=== PATIENT | male | born 1970 | race Caucasian/White ===

== ENCOUNTER 2022-12-28 13:21 | Observation (INO) | payer OTHER, BC ==
[2022-12-28] MEDS ORDERED: Morphine 4 MG/ML VIAL IVPUSH ONE (13:35)
[2022-12-28] MEDS ORDERED: Sodium Chloride 0.9% 1,000 ML IV ONE (14:34)
[2022-12-28] MEDS ORDERED: fentaNYL 100 MCG/2 ML SDV IVPUSH STA (14:38)
[2022-12-28] MEDS ORDERED: Sodium Chloride 0.9% 10 ML Syringe FLUSH PRN (16:33)
[2022-12-28 16:52] LABS: HEMATOCRIT 37.5 % (40.0-54.0); HEMOGLOBIN 13.1 g/dL (13.0-18.0); MEAN CORPUSCULAR HEMOGLOBIN 28.9 pg (27.0-32.0); MEAN CORPUSCULAR HGB CONC 34.9 g/dL (31.0-35.0); MEAN PLATELET VOLUME 9.2 fL (6.0-10.0); RED BLOOD CELL COUNT 4.53 M/uL (4.50-6.50); RED CELL DISTRIBUTION WIDTH 13.4 % (11.0-16.0)
[2022-12-28 17:02] LABS: ANION GAP 11.6 mmol/L (5.0-15.0); BUN/CREATININE RATIO 15.2 (6-25); CALCIUM 8.1 mg/dL (8.5-10.1); CARBON DIOXIDE,CO2 25.7 mmol/L (21.0-32.0); CREATININE 1.25 mg/dL (0.70-1.30); EST CRCL DRUG DOSING (CG) 87.34 mL/min; POTASSIUM,K 4.3 mmol/L (3.5-5.1)
[2022-12-28] MEDS: Morphine 4 MG/ML VIAL IVPUSH PRN ×2 (17:56→23:35)
[2022-12-28] MEDS: Acetaminophen/HYDROcodone 325-5 MG Tab PO PRN ×2 (20:45→23:50)
[2022-12-28] MEDS: Acetaminophen 325 MG Tab PO PRN (20:48)
[2022-12-29] MEDS: Morphine 4 MG/ML VIAL IVPUSH PRN (03:10)
[2022-12-29] MEDS: Acetaminophen/HYDROcodone 325-5 MG Tab PO PRN ×4 (03:11→15:16)
[2022-12-29] MEDS: Acetaminophen 325 MG Tab PO PRN (06:09)
[2022-12-29 07:31] LABS: APPEARANCE,URINE TURBID (CLEAR); BILIRUBIN,URINE NEGATIVE (NEGATIVE); COLOR,URINE YELLOW; GLUCOSE,URINE NEGATIVE (NEGATIVE); KETONES,URINE NEGATIVE (NEGATIVE); LEUKOCYTE ESTERASE,URINE NEGATIVE (NEGATIVE); NITRITE,URINE NEGATIVE (NEGATIVE); OCCULT BLOOD,URINE SMALL (NEGATIVE); PH,URINE 5.5 (5.0-8.0); PROTEIN,URINE NEGATIVE (NEGATIVE); UROBILINOGEN,URINE 0.2 E.U./dL (0.2-1.0)
[2022-12-29 08:23] LABS: RBC,URINE 0-5 /HPF; SQUAMOUS EPITHELIAL CELLS,UR OCCASIONAL /HPF; WBC,URINE 0-5 /HPF
[2022-12-29 08:24] LABS: BACTERIA,URINE OCCASIONAL /HPF
[2022-12-29] MEDS: Ketorolac 60 MG/2 ML SDV IVPUSH SCH ×3 (09:30→20:46)
[2022-12-29] MEDS: Docusate Sodium 100 MG Cap PO SCH ×2 (09:54→20:45)
[2022-12-29] MEDS: Cyclobenzaprine 5 MG Tab PO SCH ×2 (16:15→20:45)
[2022-12-30] MEDS: Ketorolac 60 MG/2 ML SDV IVPUSH SCH ×2 (04:32→08:16)
[2022-12-30] MEDS: Acetaminophen/HYDROcodone 325-5 MG Tab PO PRN (04:33)
[2022-12-30] MEDS: Cyclobenzaprine 5 MG Tab PO SCH (08:16)
[2022-12-30] MEDS: Docusate Sodium 100 MG Cap PO SCH (08:16)
[2022-12-30 09:31] VITALS: BP 136/82; PULSE 82
== END 2022-12-30 09:30 | disposition home or self-care (01) ==
LOC: LB.ED 13:21 → LB.MS 17:28 → UNDOADMOB 17:28 → LB.MS 17:35 → LB.ED 17:50
PROVIDERS: ADMIT Surgery; ATTEND Surgery
DX: S32.009A Unspecified fracture of unspecified lumbar vertebra, initial encounter for closed fracture (principal); S72.002A Fracture of unspecified part of neck of left femur, initial encounter for closed fracture; V89.2XXA Person injured in unspecified motor-vehicle accident, traffic, initial encounter; Z79.899 Other long term (current) drug therapy
CPT/HCPCS: 36415; 71250; 73502; 73551; 74176; 80048; 81001; 85027; 96374; 96375; 96376; 99285; A9270; G0378; J1885; J2270; J3010; J7030